=== PATIENT | female | born 1950 | race Caucasian/White ===

== ENCOUNTER 2017-05-23 18:27 | Inpatient (IN) ==
[2017-05-23] MEDS ORDERED: SODIUM CHLORIDE 0.9% 1,000 ML IV STA (18:58)
--- NOTE | 2017-05-23 19:10 | XRay Report ---
Exam: XR chest 1V portable Indication: Shortness of breath Comparison study: None Findings: The heart, mediastinum, and bony structures are within normal limits. There is no focal consolidation, pneumothorax or pleural effusion identified. Impression: No acute cardiopulmonary process. PROCEDURE INTERPRETED AT [facility] DEPARTMENT OF RADIOLOGY Final Report Signed by: Neri Trujillo
[2017-05-23 20:24] LABS: Basophils # 0.1 10*3/uL (0.0-0.2); Basophils % 0.2 % (0.0-0.8); Hematocrit 40.1 VOL% (35.7-47.0); Hemoglobin 14.2 GM/DL (12.0-16.0); Immature Granulocytes % 0.7 %; Immature Granulocytes Absolute 0.16 #; Lymphocytes # 0.8 10*3/uL (1.4-4.0); Lymphocytes % 3.4 % (21.3-54.2); Mean Corpuscular HGB Conc 35.4 GM/DL (32-36); Mean Corpuscular Hemoglobin 32 PG (27-34); Mean Corpuscular Volume 89.9 FL (87-102); Mean Platelet Volume 10.4 FL (9.6-12.0); Monocytes # 1.6 10*3/uL (0.11-0.8); Monocytes % 7.3 % (1.7-12.7); Neutrophils # 19.7 10*3/uL (1.4-7.4); Neutrophils % 88.4 % (38.7-73.9); Platelet Count 164 T/CUMM (130-400); Red Blood Count 4.46 MC/CUMM (3.8-5.5); Red Cell Distribution Width 13.1 % (9.3-17.3); White Blood Count 22.3 T/CUMM (4-12)
[2017-05-23 20:42] LABS: Albumin 3.3 G/DL (3.4-5.0); Bilirubin,Total 1.2 MG/DL (0.2-1.0); Calcium 9.3 MG/DL (8.5-10.1); Magnesium 2.3 MG/DL (1.8-2.4); Osmolality,Calculated 281.8 MOS/KG (273-304); Total Protein 7.5 G/DL (6.4-8.3)
[2017-05-23 20:44] LABS: Troponin I Only 0.058 NG/ML (0.00-0.045)
[2017-05-23 20:49] LABS: Lymphocytes 4 % (20-55); Platelet Estimate Adequate; Segmented Neutrophils 85 % (50-85); Total Cells Counted 100
[2017-05-23 21:54] LABS: Apearance,Urine CLOUDY (Clear); Bacteria,Urine Occasional /HPF (Few); Bilirubin,Urine Negative (Negative); Blood, Urine Moderate mg/dL (Negative); Glucose,Urine (UA) Negative (Negative); Ketones,Urine Negative (Negative); Mucus,Urine Occasional /LPF (Occasional); Nitrite,Urine Negative (Negative); Protein,Urine 100 MG/DL; RBC,Urine 7 /HPF (0-4); Squamous Epithelial Cell,Urine Occasional /HPF (0-10); Urine Color Yellow (Yellow); Urine Specific Gravity 1.025 (1.001-1.035); Urine Urobilinogen < 2.0 EU/DL (0.2-1.0); WBC,Urine 602 /HPF (0-6)
[2017-05-23] MEDS ORDERED: cefTRIAXone 1,000 MG in SODIUM CHLORIDE 0.9% 100 ML IV STA (21:56)
[2017-05-23] MEDS ORDERED: cefTRIAXone 1,000 MG VIAL ONE ×2 (22:27→22:46)
--- NOTE | 2017-05-23 22:30 | Emergency Department Note ---
IHardy Brooke, am scribing for, and in the presence of, Sree Lobo MD 19:04. IYamil Kevin Lee, MD, personally performed the services described in this documentation, ascribed by Indu Dash in my presence, and it is both accurate and complete . Arrival - Arrival Chief Complaint: Non-Specific Stated Complaint: UT on sunday fever 102-103,weak ED Nursing Triage Note: pt went to her pcp mi sunday. Mode of Arrival: Wheelchair Limitations: No Limitations Source: Patient, Family, RN Notes Reviewed Time Seen by Provider: 05/23/17 18:52 - History of Present Illness HPI Narrative: Patient is a 67 year old female who presents to the ED with c/o fever and generalized weakness. On Sunday, Patient was inside at an estate sale when she became diaphoretic, cold, clammy, and nauseated. She says her hair was soaking wet and "I'm not the one to sweat." Patient says she has been extremely weak since that episode. Patient is normally very active. While in the grocery store, Sunday, she had to sit down two times to rest. Patient says she has had some left neck and shoulder pain also but her main concern is the weakness. Patient's temperature started last night around 1800 and she says it was 102.4. During triage, her temperature was 96.9. Patient says she is not eating or drinking and says she "don't feel like." She did see her Nurse Practitioner, yesterday, where they did blood/urine work. She has not received the results from the blood work but she says she was told "there was something in my urine. " She says they sent the urine to be cultured but did not prescribe her any abx. Patient has no known medical problems. Patient says she does have FHx of heart disease. Onset (ago): day(s) (5) Allergies/Adverse Reactions: Allergies Allergy/AdvReac Type Severity Reaction Status Date / Time allopurinol Allergy Unknown/Unable Verified 05/23/17 18:37 to obtain Home Medications: Home Medications Medication Instructions Recorded Confirmed Type Levothyroxine Tab [Synthroid Tab] 100 mcg PO DAILY@0700 05/23/17 05/23/17 History Multivit-Min/FA/Lycopen/Lutein 1 each PO BEDTIME 05/23/17 05/23/17 History [Centrum Silver Tablet] Potassium Chloride 20 meq PO BEDTIME 05/23/17 05/23/17 History Triamterene/Hydrochlorothiazid 1 each PO QAM 05/23/17 05/23/17 History [Triamterene-Hctz 37.5-25 mg Tb] Review of System - Review of System 12 point system: reviewed and no additional remarkable complaints except as stated - Review of System Constitutional: Present: fever Respiratory: Absent: respiratory distress Musculoskeletal: Present: neck pain (left side), other (left shoulder pain) Skin: Absent: rash Neurological: Present: weakness (generalized) Medical,Surgical,& Family Hx - Social History Smoking Status: Never smoker Frequency of Alcohol Use: None Type of Drug Use: None Exam Vital Signs: Vital Signs Temperature 96.6 F L 05/23/17 22:11 Pulse Rate 100 H 05/23/17 22:11 Respiratory Rate 18 05/23/17 22:11 Blood Pressure 123/78 05/23/17 22:11 O2 Sat by Pulse Oximetry 96 05/23/17 18:35 - General General appearance: alert, in no apparent distress - Head Head exam: Present: atraumatic, normocephalic - Eye Eye exam: Present: normal appearance, PERRL, EOMI - ENT ENT exam: Present: normal exam - Neck Neck exam: Present: normal inspection - Chest Chest inspection: Present: normal inspection, symmetric chest wall rise - Respiratory Respiratory exam: Present: normal lung sounds bilaterally - Cardiovascular Cardiovascular exam: Present: regular rate, normal rhythm, normal heart sounds - Abdominal Exam Abdominal exam: Present: soft, normal bowel sounds. Absent: distention, tenderness - Extremities Exam Extremities exam: Present: normal inspection - Back Exam Back exam: Present: normal inspection - Neurological Exam Neurological exam: Present: alert, oriented X3 - Psychiatric Psychiatric exam: Present: normal affect, normal mood - Skin Skin exam: Present: warm, dry, intact, normal color Course Course Narrative: will admit for IV abx and fluids and further eval and treatment of elevated enzyes Results - Labs CBC & BMP: 05/23/17 20:02 05/23/17 20:02 Lab Results: I have reviewed the patients labs - Diagnostic Findings Procedure: Chest x-ray: report reviewed by me (No acute cardiopulmonary process. ), CT Abdomen and Pelvis: report reviewed by me (no acute findings) Disposition Clinical Impression: UTI (urinary tract infection), Sepsis, Generalized weakness, Cardiac enzymes elevated Case discussed with: patient, patient's family Disposition: Still a Patient Condition: Guarded
[2017-05-23] MEDS ORDERED: ONDANSETRON 4 MG/2 ML VIAL IV PRN (23:38)
[2017-05-24] MEDS ORDERED: POTASSIUM CHLORIDE 20 MEQ PACK PO ONE (01:00)
[2017-05-24] MEDS: SODIUM CHLORIDE 0.9% 1,000 ML IV SCH ×3 (01:28→20:33)
[2017-05-24] MEDS: ACETAMINOPHEN 325 MG TABLET PO PRN ×4 (02:04→20:28)
--- NOTE | 2017-05-24 03:01 | EKG Report ---
Stationary ECG Study [facility] ER Test Date: 05/23/2017 6:46:05 PM Pat Name: DALY ZAMORA Department: Room: 528 Gender: F Die Finisher: : 1950 Requested by: Sree Nichole Order Number: [id number] Reading MD: REGINO OWENS Intervals [place] Rate: 99 P: 22 AL: 124 QRS: 21 QRSD: 83 T: 4 QT: 330 QTc: 386 Interpretive Statements SINUS RHYTHM LOW QRS VOLTAGE IN PRECORDIAL LEADS Electronically Signed On 05-24-17 18:49:29 CDT by REGINO OWENS [email or web address]
--- NOTE | 2017-05-24 05:51 | Hospitalist History & Physical ---
<Keri Santana - Last Filed: 05/24/17 05:35> Assessment and Plan - Time spent with patient Time spent with patient: Greater than 30 minutes (1) Pyelonephritis Status: Acute Assessment and plan: Admit to hospitalist services. Right-sided abdominal pain with elevated WBCs at 22.3 and fever at home. NS 100 ml/hr IV x 24 hours. Rocephin 1 gm given in ED. Continue Q24 hours. Blood cultures drawn in ED; follow. Recheck CBC in am. Current Visit: Yes (2) Sepsis Status: Acute Assessment and plan: As above for pyelonephritis. Current Visit: Yes (3) Acute renal failure Status: Acute Assessment and plan: NS at 100 ml/hr IV x 24 hours. Recheck BMP in am. Current Visit: Yes (4) Generalized weakness Status: Acute Assessment and plan: As above for pyelonephritis. Current Visit: Yes (5) Cardiac enzymes elevated Status: Acute Assessment and plan: Initial troponin in ED was 0.058. Possibly a cardiac event occurred on Sunday05/19/17. Consult cardiology. Obtain serial troponins; follow. Repeat BNP in am. Magnesium, Lipid panel and TSH/Free T4 in am. Current Visit: Yes (6) Hypokalemia Status: Acute Assessment and plan: Potassium chloride 40 meq packet PO x 1 dose. Continue home dose of potassium 20 meq PO daily. Recheck BMP in am. Current Visit: Yes (7) Blood glucose elevated Status: Acute Assessment and plan: Patient denies history of diabetes. Check HA1C with am labs. Current Visit: Yes (8) Hypertension Status: Chronic Assessment and plan: Holding home BP meds for now due to ARF. Hydralazine 10 mg IV Q6 hours PRN for BP >150/90. Current Visit: Yes (9) Hypothyroidism Status: Chronic Assessment and plan: Continue home dose of levothyroxine. Current Visit: Yes (10) DVT prophylaxis Status: Acute Assessment and plan: Lovenox 40 mg SQ daily. Current Visit: Yes History of Present Illness Chief complaint: Weakness, fever, generalized malaise History of present illness: Ms. Simon is a 67 year old female with a past medical history of HTN, hypothyroidism, and gout who presented to the ED tonight with complaints of generalized weakness and malaise, fever of 102, and nausea. Ms. Page reports that on 05/19/17, she was at an estate sale when she had sudden onset of diaphoresis, clamminess, weakness, bilateral shoulder pain, left-sided neck pain and nausea. She had family take her home where she waited through the holiday with continuing symptoms. She presented to her PCP on Sunday and was told she probably had a mild heart attack. A cardiology appointment was established at that time. However, her symptoms have persisted and she has developed a fever of 102. Additionally, she reports right-sided abdominal pain and new onset of urinary urgency with incontinence since the Sunday event. In the ED, she was found to have elevated WBCs at 22.3, creatinine of 1.5, a large number of leukocytes in her urine, and an elevated troponin of 0.058. CXR was negative for any acute cardiopulmonary process. Currently, she is lying in bed, still with complaints of general weakness and malaise. Hospitalist services were consulted, and the patient will be admitted for further evaluation and treatment. Home Medications Medication Instructions Recorded Confirmed Type Levothyroxine Tab [Synthroid Tab] 100 mcg PO DAILY@0700 05/23/17 05/24/17 History Multivit-Min/FA/Lycopen/Lutein 1 each PO BEDTIME 05/23/17 05/24/17 History [Centrum Silver Tablet] Potassium Chloride 20 meq PO BEDTIME 05/23/17 05/24/17 History Triamterene/Hydrochlorothiazid 1 each PO QAM 05/23/17 05/24/17 History [Triamterene-Hctz 37.5-25 mg Tb] Allergies Allergy/AdvReac Type Severity Reaction Status Date / Time allopurinol Allergy Unknown/Unable Verified 05/23/17 18:37 to obtain Medical,Surgical,& Family Hx - Medical History Cardio: History of: Hypertension Endocrine: History of: Thyroid Disorder (Hypothyroidism) Rheumatology: History of;: Gout - Surgical History HEENT Surgeries: Surgical HX of: Eye Surgery (cataract surgery) Abdominal Surgeries: Surgical HX of: Cholecystectomy - Family History Family History: Reports;: Family Cancer (father), Family Heart Disease (mother, heart failure) - Social History Smoking Status: Never smoker Have you smoked in the last 12 months: No Frequency of Alcohol Use: None Type of Drug Use: None Marital Status: Lives With:: Spouse Functional capacity: independent ambulation - Constitutional Constitutional: Present: anorexia, fatigue, fever(s), lethargy, malaise, weakness - EENT Eyes: Absent: blurry vision, diplopia, loss of vision Ears: Absent: decreased hearing, ear discharge, ear pain Nose, mouth and throat: Absent: headache(s), nasal congestion, sore throat - Cardiovascular Cardiovascular: Absent: chest pain at rest, chest pain with activity, dyspnea, edema, orthopnea, palpitations - Respiratory Respiratory: Absent: cough, dyspnea, wheezing - Gastrointestinal Gastrointestinal: Present: abdominal pain (right-sided), nausea. Absent: constipation, diarrhea, vomiting - Genitourinary Genitourinary: Present: urinary incontinence, other (urinary urgency). Absent: dysuria - Musculoskeletal Musculoskeletal: Present: arthralgias (bilateral shoulder pain), muscle weakness. Absent: joint swelling, myalgias - Neurological Neurological: Present: paresthesias (bilateral feet). Absent: confusion, dizziness, numbness, syncope - Psychiatric Psychiatric: Absent: anxiety, depression - Endocrine Endocrine: Absent: cold intolerance, polydipsia, polyphagia, polyuria - Hematologic/Lymphatic Hematologic/Lymphatic: Absent: easy bleeding, easy bruising Exam - Constitutional Vitals: Period Temp Pulse Resp BP Sys/Flores Pulse Ox Last 24 Hr 96.6 F-99.6 F 74-100 18-20 123-176/59-78 96-100 Exam: Constitutional System: Afebrile, low temp of 96.6. Diaphoretic. Mild distress. No tremulousness. Head: Normocephalic, atraumatic. Ears, Nose and Throat System: No pain or tenderness. No epistaxis or discharge Eyes System: Pupils equal, round, and reactive. Extraocular muscles intact. Neck: Supple, without adenopathy, No jugular venous distention. No thyromegaly, neck mass, or prior surgery apparent. Respiratory System: Chest clear to auscultation. Cardiovascular System: Heart with regular rate and rhythm. No murmur. GI System: Abdomen soft, nontender. Normo active bowel sounds present. Musculoskeletal System: limbs with no pedal edema. Full distal pulses. Normal capillary refill. Neurological System: No discernable sensory deficit. No aphasia Psychiatric System: Conversation is rational Results - Labs CBC & BMP: 05/23/17 20:02 05/23/17 20:02 Lab Results: I have reviewed the past 24 hour labs - Diagnostic Findings Procedure: Chest x-ray: report reviewed by me (Reviewed by me. No acute cardiopulmonary process. ), CT Abdomen and Pelvis: pending <BlueAta - Last Filed: 05/24/17 21:50> Assessment and Plan (1) Pyelonephritis Status: Acute Assessment and plan: I saw and examined the patient in conjunction with nurse practitioner Keri Okeefe. I agree with the above. The patient presented with fever, abdominal pain, pyuria, leukocytosis consistent with acute pyelonephritis. She did describe an episode of chest and arm pain occurring 3 days prior in weakness and malaise since then associated with mildly elevated troponin which does raise the possibility that she may have had a cardiac event at that time. I agree with current antibiotics, completing serial troponins and consulting cardiology. Exam is unremarkable. She does have some right abdominal tenderness consistent with pyelonephritis. Current Visit: Yes History of Present Illness History of present illness: Ms. Simon is a 67 year old female Exam - Constitutional Vitals: Period Temp Pulse Resp BP Sys/Flores Pulse Ox Last 24 Hr 96.6 F-99.7 F 72-100 18-20 123-176/47-78 93-100 Results - Labs CBC & BMP: 05/24/17 06:47 05/24/17 06:47
[2017-05-24] MEDS: LEVOTHYROXINE 100 MCG TABLET PO SCH (06:12)
[2017-05-24] MEDS ORDERED: hydrALAZINE 20 MG/1 ML VIAL IV PRN (06:23)
--- NOTE | 2017-05-24 06:51 | CT Report ---
Exam: CT abdomen pelvis w con Date: 05/23/2017 8:38 PM Comparison: None Indication: Abdominal pain fever Total DLP: 2048.8 mGy*cm Technical: This study was initially reviewed by [facility]. No oral contrast was administered. Images were obtained from the lung bases to the iliac crest continuation through the pelvis with 100 cc of Omnipaque 350 with axial sagittal coronal imaging available for review. Dose reduction was performed with decreasing kv and mA and automated exposure Findings: Lung bases: No obvious infiltrates or effusions present. Liver and Spleen: Unremarkable Gallbladder and Pancreas: Previous cholecystectomy. Adrenals: Unremarkable Kidneys: Both kidneys are equally perfused and demonstrate no evidence for obstructive uropathy. Stomach: Incomplete distended with air-fluid and debris Retroperitoneum: No enlarged lymph nodes. Aorta and IVC: Aorta iliac vessels and IVC are unremarkable Bowel and Mesentery: There is no evidence for bowel obstruction. No evidence of appendicitis diverticulosis or diverticulitis present. Pelvis: Bladder: Incompletely distended with fluid Fluid: No free fluid identified. Lymph nodes: No enlarged lymph nodes. Pelvic organs: Uterus is midline. No adnexal masses. Osseous structures: Degenerative changes present thoracolumbar spine. Facet arthropathy is present. Impression: 1. No acute intra-abdominal or pelvic pathology present. 2. Previous cholecystectomy 3. 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 PROCEDURE INTERPRETED AT [facility] DEPARTMENT OF RADIOLOGY Final Report Signed by: Dr. Kobe Friedman
[2017-05-24 08:08] LABS: Basophils % 0.2 % (0.0-0.8); Hematocrit 35.6 VOL% (35.7-47.0); Hemoglobin 12.4 GM/DL (12.0-16.0); Immature Granulocytes % 0.6 %; Immature Granulocytes Absolute 0.13 #; Lymphocytes # 0.7 10*3/uL (1.4-4.0); Lymphocytes % 3.5 % (21.3-54.2); Mean Corpuscular HGB Conc 34.8 GM/DL (32-36); Mean Corpuscular Hemoglobin 32 PG (27-34); Mean Corpuscular Volume 91.3 FL (87-102); Mean Platelet Volume 10.9 FL (9.6-12.0); Monocytes # 1.1 10*3/uL (0.11-0.8); Monocytes % 5.3 % (1.7-12.7); Neutrophils # 18.2 10*3/uL (1.4-7.4); Neutrophils % 90.4 % (38.7-73.9); Platelet Count 153 T/CUMM (130-400); Red Cell Distribution Width 13.4 % (9.3-17.3); White Blood Count 20.1 T/CUMM (4-12)
[2017-05-24 08:35] LABS: Band Neutrophils 12 % (0-10); Lymphocytes 1 % (20-55); Segmented Neutrophils 82 % (50-85); Total Cells Counted 100
[2017-05-24 08:36] LABS: Hypochromasia Slight; Microcytosis 1+; Platelet Estimate Adequate
[2017-05-24 08:44] LABS: Magnesium 2.2 MG/DL (1.8-2.4); Osmolality,Calculated 280.7 MOS/KG (273-304); Potassium 3.3 MMOL/L (3.5-5.1); Risk Ratio 2.7; VLDL CHOLESTEROL 13.8 MG/DL
--- NOTE | 2017-05-24 13:28 | EKG Report ---
Stationary ECG Study [facility] Test Date: 05/24/2017 1:28:44 PM Pat Name: DALY ZAMORA Department: Room: 528 Gender: F Audit Intern: : 1950 Requested by: Cristobal Keith Order Number: [id number] Reading MD: REGINO OWENS Intervals [place] Rate: 73 P: 61 [place]: 146 QRS: 44 QRSD: 81 T: 59 QT: 367 QTc: 393 Interpretive Statements SINUS RHYTHM LOW QRS VOLTAGE IN PRECORDIAL LEADS Electronically Signed On 05-24-17 18:55:55 CDT by REGINO OWENS [id number]
--- NOTE | 2017-05-24 13:48 | Cardiology Consult Note ---
Assessment and Plan - Time spent with patient Time spent with patient: Greater than 30 minutes (due to assessment, plan, and documentation) (1) Cardiac enzymes elevated Status: Acute Assessment and plan: See plan of care listed below. Current Visit: Yes (2) Pyelonephritis Status: Acute Assessment and plan: See plan of care listed below. Current Visit: Yes (3) Acute renal failure Status: Acute Assessment and plan: See plan of care listed below. Current Visit: Yes (4) Sepsis Status: Acute Assessment and plan: See plan of care listed below. Current Visit: Yes (5) Generalized weakness Status: Acute Assessment and plan: See plan of care listed below. Current Visit: Yes (6) Hypokalemia Status: Acute Assessment and plan: See plan of care listed below. Current Visit: Yes (7) Hypertension Status: Chronic Assessment and plan: See plan of care listed below. Current Visit: Yes (8) Hypothyroidism Status: Chronic Assessment and plan: See plan of care listed below. Current Visit: Yes (9) Blood glucose elevated Status: Acute Assessment and plan: See plan of care listed below. Current Visit: Yes History of Present Illness - Data of Consult Patient: new to practice Consult date: 05/24/17 Requesting Physician: Keri Santana - Consult Narrative Reason for consult: elevated troponin History of present illness: Crts: new to [facility] (would prefer to see Dr. Carrasco as he has seen her other family members) Ms. Simon is a 67 y/o WF with a history of hypertension, hypothyroidism (with goiter), and gout. She has risk factors significant for: age, obesity, sedentary lifestyle, hypertension, family history of coronary disease. Her grandmother in her sleep at age 36 from an assumed MS. She is a lifetime nonsmoker. Her daughter, Sheridan, has been a nurse at [employer] who I worked with for many years. She did have rheumatic fever as a child. Ms. Simon presented to the emergency room on 05/23/17 with complaints of generalized weakness and malaise, fever, and nausea. She reports that she had been in her usual state of health until Sunday05/19/17 when she was at an estate sale and became suddenly diaphoretic. She felt cool and clammy and became nauseated. She also had pain in her left neck and across her shoulders. She felt very weak and could hardly make it to her vehicle. Since that time, she has not been feeling well. She is normally fairly active but her daughter tells me that they went grocery shopping this week and she had to stop and rest twice. She has been very easily fatigued and began running a fever and having chills on Sunday. Her temperature got up to 103 degrees. She went to a PCP in [place] because she felt like she had a kidney infection and was told that her urinalysis was not bad enough to warrant an antibiotic but was sent off for culture. She has been progressively worsening and her daughter insisted she come to the emergency room. En route, she reports she felt so weak she thought she was going to pass out. She denies any recent exertional angina or dyspnea. She was noted to have SpO2 of 90-91% in the ER. Creatinine was 1.5, WBC 22.3 with left shift. Troponin was trivially elevated at 0.058 in the setting of acute renal failure. Her potassium was 3.0, up to 3.3 today. Magnesium is 2.2. ASSESSMENT/PLAN: 1. ELEVATED TROPONIN: Trivially elevated in the setting of acute renal failure. It's possible she could have had a cardiac event Sunday, but at this time, we would postpone further cardiac evaluation until she has recovered from her acute illness. I have ordered an echocardiogram which we will review. We'll go ahead and start her on a baby aspirin daily as well as a low-dose beta morgan. 2. PYELONEPHRITIS: She has been started on IV antibiotics. Will defer further management to hospital medicine. 3. SEPSIS: Urine culture and blood culture preliminary report shows gram negative rods. She has been started on antibiotics. 4. ACUTE RENAL FAILURE: She has been started on IVF and antibiotics. We are avoiding nephrotoxic agents and following BMP. 5. GENERALIZED WEAKNESS: Likely due to sepsis and phyelonephritis. 6. HYPOKALEMIA: This is being replaced as needed. 7. HYPERTENSION: Has been fairly well controlled. Will continue to monitor and adjust accordingly. Her home blood pressure medications are on hold due to ARF. She has hydralazine PRN. We will also start her on low-dose beta morgan and aspirin. 8. HYPOTHYROID: FT4 normal. 9. ELEVATED BLOOD GLUCOSE: Hemoglobin A1C 5.7. CC: Susy Narvaez MD - Home Medications and Allergies Home Medications: Home Medications Medication Instructions Recorded Confirmed Type Levothyroxine Tab [Synthroid Tab] 100 mcg PO DAILY@0700 05/23/17 05/24/17 History Multivit-Min/FA/Lycopen/Lutein 1 each PO BEDTIME 05/23/17 05/24/17 History [Centrum Silver Tablet] Potassium Chloride 20 meq PO BEDTIME 05/23/17 05/24/17 History Triamterene/Hydrochlorothiazid 1 each PO QAM 05/23/17 05/24/17 History [Triamterene-Hctz 37.5-25 mg Tb] Allergies/Adverse Reactions: Allergies Allergy/AdvReac Type Severity Reaction Status Date / Time allopurinol Allergy Unknown/Unable Verified 05/23/17 18:37 to obtain Review of systems: - Constitutional: Present: fatigue, weakness, chills, fever(s), malaise, As per HPI. Absent: anorexia, daytime sleepiness, excessive sweating, frequent falls, headache(s), increased appetite, lethargy, night sweats, stops breathing during sleep, weight gain, weight loss. - EENT Eyes: Present: As per HPI. Absent: blurry vision, diplopia, loss of vision Ears: Present: As per HPI. Absent: decreased hearing, ear discharge, ear pain Nose, mouth and throat: Present: As per HPI. Absent: dysphagia, epistaxis, headache(s), hoarseness, lip swelling, nasal congestion, neck mass, neck pain, sinus pressure, sore throat, throat swelling, tongue swelling, vertigo - Cardiovascular: Present: radiating jaw, neck or arm pain, diaphoresis, , as per HPI. Absent: chest pain at rest, chest pain with activity, dyspnea, dyspnea on exertion, edema, claudication, lightheadedness, orthopnea, palpitations, PND - Respiratory: Present: as per HPI. Absent: dyspnea, dyspnea on exertion, cough , hemoptysis, wheezing, snoring, pain on inspiration - Gastrointestinal: Present: nausea, As per HPI. Absent: abdominal pain, bloating, change in bowel habits, constipation, diarrhea, heartburn, hematemesis , hematochezia, loose stools, melena, vomiting - Genitourinary: Present: dysuria, urinary frequency, As per HPI. Absent: difficulty urinating, flank pain, hematuria, nocturia, urinary incontinence - Musculoskeletal: Present: back pain, As per HPI. Absent: arthralgias, joint swelling, limited range of motion, muscle cramps, muscle weakness, myalgias - Neurological: Present: weakness, As per HPI. Absent: abnormal gait, abnormal speech, behavioral changes, confusion, convulsions, disequilibrium, dizziness, focal frequent falls, headache(s), memory loss, numbness, paresthesias, radicular pain, syncope, tremor(s) - Psychiatric: Present: As per HPI. Absent: anxiety, confusion, depression, panic attacks - Endocrine: Present: fatigue, As per HPI. Absent: cold intolerance, heat intolerance, polydipsia, polyphagia - Hematologic/Lymphatic: Present: As per HPI. Absent: easy bleeding, easy bruising, lymphadenopathy Medical,Surgical,& Family Hx - Medical History Cardio: History of: Hypertension Endocrine: History of: Thyroid Disorder (Hypothyroidism) Rheumatology: History of;: Gout - Surgical History HEENT Surgeries: Surgical HX of: Eye Surgery (cataract surgery) Abdominal Surgeries: Surgical HX of: Cholecystectomy - Family History Family History: Reports;: Family Cancer (father), Family Heart Disease (mother, heart failure) - Social History Smoking Status: Never smoker Frequency of Alcohol Use: None Type of Drug Use: None Marital Status: Lives With:: Spouse Functional capacity: independent ambulation Physical Examination Vital Signs Temp Pulse Resp BP Pulse Ox 96.6 F L 100 H 18 123/78 96 05/23/17 18:35 05/23/17 18:35 05/23/17 18:35 05/23/17 18:35 05/23/17 18:35 Exam: General appearance: Appears well. Pleasant and cooperative. Overweight, no acute distress. Head exam: Present: normal inspection, normocephalic, atraumatic. Absent: hematoma, laceration Eye exam: Present: EOMI. Absent: conjunctival injection, nystagmus, periorbital swelling, scleral icterus, laceration to eyelids, jaundice Pupils: Present: PERRL. Absent: constricted, dilated, fixed, irregular, unequal ENT exam: Present: normal exam, normal external ear exam, mucous membranes moist. Neck exam: Present: normal inspection, midline trachea. Absent: masses, lymphadenopathy, tenderness, thyromegaly, carotid bruit Respiratory exam: Present: clear to auscultation bilaterally. Absent: accessory muscle use, chest wall tenderness, rales, rhonchi, wheezing. Cardiovascular exam: Present: regular rate and rhythm. Systolic ejection murmur. Absent: gallop, JVD, rubs GI/Abdominal exam: Present: normal bowel sounds, soft. Absent: distended, firm , hernia, mass, tenderness. Extremities exam: Present: Normal Gait, No Clubbing, No Cyanosis, Upper Extr. Pulses 2+, Lower Extr. Pulses 2+, No edema. Capillary refill less than 3 seconds. Musculoskeletal: Present: No Fluid Collection, No Pain, Normal Range of Motion Back exam: Present: normal inspection. Absent: muscle spasm, vertebral tenderness Neurological exam: Present: awake, alert, oriented X3, Moves all extremities well without hemiparesis or paralysis. Grossly intact without resting or essential tremor Psychiatric exam: Present: normal affect, normal mood Skin exam: Present: normal color, warm, dry, intact. Absent: cyanosis, diaphoretic, rash, urticaria Result/EKG - Labs CBC & BMP: 05/24/17 06:47 05/24/17 06:47 Lab Results: I have reviewed the past 24 hour labs Labs: Laboratory Results - last 24 hr 05/23/17 05/23/17 05/23/17 20:02 20:02 20:02 WBC 22.3 H RBC 4.46 Hgb 14.2 Hct 40.1 MCV 89.9 MCH 32 MCHC 35.4 RDW 13.1 Plt Count 164 MPV 10.4 Neut % (Auto) 88.4 H Lymph % (Auto) 3.4 L Hubbard % (Auto) 7.3 Eos % (Auto) 0.0 Baso % (Auto) 0.2 Neut # (Auto) 19.7 H Lymph # (Auto) 0.8 L Hubbard # (Auto) 1.6 H Eos # (Auto) 0.0 Baso # (Auto) 0.1 Total Counted 100 Immature Gran % 0.7 Nucleated RBC % 0.0 Immature Gran # 0.16 Segmented Neutrophils 85 Band Neutrophils Lymphocytes 4 L Monocytes 11 Nucleated RBCs # 0.00 Platelet Estimate Adequate Immature Plt Fraction 0.0 Hypochromasia Microcytosis Sodium 137 Potassium 3.0 L Chloride 101 Carbon Dioxide 28 Anion Gap 11.0 BUN 23 H Creatinine 1.50 H GFR Calculation 48 BUN/Creatinine Ratio 15.00 Glucose 187 H POC Glucose Hemoglobin A1c Calculated Osmolality 281.8 Lactic Acid Calcium 9.3 Magnesium 2.3 Total Bilirubin 1.20 H AST 20 ALT 21 Alkaline Phosphatase 79 Troponin I 0.058 H B-Natriuretic Peptide 25 Total Protein 7.5 Albumin 3.3 L Globulin 4.2 H Albumin/Globulin Ratio 0.7 L Triglycerides Cholesterol LDL Cholesterol VLDL Cholesterol HDL Cholesterol Heart Disease Risk Ratio Free T4 Urine Color Urine Appearance Urine pH Ur Specific Sligo Urine Protein Urine Glucose (UA) Urine Ketones Urine Blood Urine Nitrate Urine Bilirubin Urine Urobilinogen Urine Leukocytes Urine RBC Urine WBC Urine WBC Clumps Ur Squamous Epith Cells Urine Bacteria Urine Mucus Ur Culture Indicated? 05/23/17 05/23/17 05/24/17 20:02 21:41 06:47 WBC 20.1 H RBC 3.90 Hgb 12.4 Hct 35.6 L MCV 91.3 MCH 32 MCHC 34.8 RDW 13.4 Plt Count 153 MPV 10.9 Neut % (Auto) 90.4 H Lymph % (Auto) 3.5 L Hubbard % (Auto) 5.3 Eos % (Auto) 0.0 Baso % (Auto) 0.2 Neut # (Auto) 18.2 H Lymph # (Auto) 0.7 L Hubbard # (Auto) 1.1 H Eos # (Auto) 0.0 Baso # (Auto) 0.0 Total Counted 100 Immature Gran % 0.6 Nucleated RBC % 0.0 Immature Gran # 0.13 Segmented Neutrophils 82 Band Neutrophils 12 H Lymphocytes 1 L Monocytes 5 Nucleated RBCs # 0.00 Platelet Estimate Adequate Immature Plt Fraction 0.0 Hypochromasia Slight Microcytosis 1+ Sodium Potassium Chloride Carbon Dioxide Anion Gap BUN Creatinine GFR Calculation BUN/Creatinine Ratio Glucose POC Glucose Hemoglobin A1c Calculated Osmolality Lactic Acid 1.1 Calcium Magnesium Total Bilirubin AST ALT Alkaline Phosphatase Troponin I B-Natriuretic Peptide Total Protein Albumin Globulin Albumin/Globulin Ratio Triglycerides Cholesterol LDL Cholesterol VLDL Cholesterol HDL Cholesterol Heart Disease Risk Ratio Free T4 Urine Color Yellow Urine Appearance Cloudy Urine pH 5.0 Ur Specific Sligo 1.025 Urine Protein 100 Urine Glucose (UA) Negative Urine Ketones Negative Urine Blood Moderate Urine Nitrate Negative Urine Bilirubin Negative Urine Urobilinogen < 2.0 H Urine Leukocytes Large H Urine RBC 7 Urine WBC 602 Urine WBC Clumps Many Ur Squamous Epith Cells Occasional Urine Bacteria Occasional Urine Mucus Occasional Ur Culture Indicated? Results to follow 05/24/17 05/24/17 05/24/17 06:47 06:47 06:47 WBC RBC Hgb Hct MCV MCH MCHC RDW Plt Count MPV Neut % (Auto) Lymph % (Auto) Hubbard % (Auto) Eos % (Auto) Baso % (Auto) Neut # (Auto) Lymph # (Auto) Hubbard # (Auto) Eos # (Auto) Baso # (Auto) Total Counted Immature Gran % Nucleated RBC % Immature Gran # Segmented Neutrophils Band Neutrophils Lymphocytes Monocytes Nucleated RBCs # Platelet Estimate Immature Plt Fraction Hypochromasia Microcytosis Sodium 138 Potassium 3.3 L Chloride 104 Carbon Dioxide 28 Anion Gap 9.3 BUN 22 H Creatinine 1.40 H GFR Calculation 53 BUN/Creatinine Ratio 15.00 Glucose 153 H POC Glucose Hemoglobin A1c 5.7 Calculated Osmolality 280.7 Lactic Acid Calcium 8.0 L Magnesium 2.2 Total Bilirubin AST ALT Alkaline Phosphatase Troponin I B-Natriuretic Peptide Total Protein Albumin Globulin Albumin/Globulin Ratio Triglycerides 69 Cholesterol 124 LDL Cholesterol 65.0 VLDL Cholesterol 13.8 HDL Cholesterol 46 Heart Disease Risk Ratio 2.70 Free T4 1.42 Urine Color Urine Appearance Urine pH Ur Specific Sligo Urine Protein Urine Glucose (UA) Urine Ketones Urine Blood Urine Nitrate Urine Bilirubin Urine Urobilinogen Urine Leukocytes Urine RBC Urine WBC Urine WBC Clumps Ur Squamous Epith Cells Urine Bacteria Urine Mucus Ur Culture Indicated? 05/24/17 05/24/17 05/24/17 06:47 06:47 07:09 WBC RBC Hgb Hct MCV MCH MCHC RDW Plt Count MPV Neut % (Auto) Lymph % (Auto) Hubbard % (Auto) Eos % (Auto) Baso % (Auto) Neut # (Auto) Lymph # (Auto) Hubbard # (Auto) Eos # (Auto) Baso # (Auto) Total Counted Immature Gran % Nucleated RBC % Immature Gran # Segmented Neutrophils Band Neutrophils Lymphocytes Monocytes Nucleated RBCs # Platelet Estimate Immature Plt Fraction Hypochromasia Microcytosis Sodium Potassium Chloride Carbon Dioxide Anion Gap BUN Creatinine GFR Calculation BUN/Creatinine Ratio Glucose POC Glucose 149 H Hemoglobin A1c Calculated Osmolality Lactic Acid Calcium Magnesium Total Bilirubin AST ALT Alkaline Phosphatase Troponin I 0.042 B-Natriuretic Peptide 64 Total Protein Albumin Globulin Albumin/Globulin Ratio Triglycerides Cholesterol LDL Cholesterol VLDL Cholesterol HDL Cholesterol Heart Disease Risk Ratio Free T4 Urine Color Urine Appearance Urine pH Ur Specific Sligo Urine Protein Urine Glucose (UA) Urine Ketones Urine Blood Urine Nitrate Urine Bilirubin Urine Urobilinogen Urine Leukocytes Urine RBC Urine WBC Urine WBC Clumps Ur Squamous Epith Cells Urine Bacteria Urine Mucus Ur Culture Indicated? 05/24/17 09:26 WBC RBC Hgb Hct MCV MCH MCHC RDW Plt Count MPV Neut % (Auto) Lymph % (Auto) Hubbard % (Auto) Eos % (Auto) Baso % (Auto) Neut # (Auto) Lymph # (Auto) Hubbard # (Auto) Eos # (Auto) Baso # (Auto) Total Counted Immature Gran % Nucleated RBC % Immature Gran # Segmented Neutrophils Band Neutrophils Lymphocytes Monocytes Nucleated RBCs # Platelet Estimate Immature Plt Fraction Hypochromasia Microcytosis Sodium Potassium Chloride Carbon Dioxide Anion Gap BUN Creatinine GFR Calculation BUN/Creatinine Ratio Glucose POC Glucose Hemoglobin A1c Calculated Osmolality Lactic Acid Calcium Magnesium Total Bilirubin AST ALT Alkaline Phosphatase Troponin I 0.038 B-Natriuretic Peptide Total Protein Albumin Globulin Albumin/Globulin Ratio Triglycerides Cholesterol LDL Cholesterol VLDL Cholesterol HDL Cholesterol Heart Disease Risk Ratio Free T4 Urine Color Urine Appearance Urine pH Ur Specific Sligo Urine Protein Urine Glucose (UA) Urine Ketones Urine Blood Urine Nitrate Urine Bilirubin Urine Urobilinogen Urine Leukocytes Urine RBC Urine WBC Urine WBC Clumps Ur Squamous Epith Cells Urine Bacteria Urine Mucus Ur Culture Indicated? - EKG EKG results: interpreted by me, sinus rhythm
[2017-05-24] MEDS: ASPIRIN EC 81 MG TABLET PO SCH (16:10)
--- NOTE | 2017-05-24 16:42 | Hospitalist Progress Note ---
Hospitalist: Subjective Interval history: 67-year-old female who was admitted with acute pyelonephritis and sepsis. Blood cultures are growing gram-negative rods. She is on IV Rocephin. She had mildly elevated troponins for which cardiology is evaluating. Exam - Constitutional Vitals: Period Temp Pulse Resp BP Sys/Flores Pulse Ox Last 24 Hr 96.6 F-99.7 F 74-100 18-20 123-176/59-78 96-100 Results - Labs CBC & BMP: 05/24/17 06:47 05/24/17 06:47
[2017-05-24] MEDS: cefTRIAXone 2,000 MG in SODIUM CHLORIDE 0.9% 100 ML IV SCH (17:55)
--- NOTE | 2017-05-24 18:36 | ECHO Report ---
Jabari Simon 05/24/2017 Exam Date: 15:53 Referring Physician: Asuncion Govea Technologist: DEIDRE Age: 67 Ht (in): 70 Wt (lb): 256 FExam [facility] Gender: Echo [id number]: Elevated cardiac enzymes, PyelonephrIndications:itis, Acute kidney failure, unspecified, Essential (primary) hypertension, Weakness, Sepsis, Elevated blood glucose, Hypokalemia, Hypothyroidism, Fever, hx rheumatic fever as child BP: 123 / 60 HR: 84 SinusRhythm: Technically difficult studyTechnical Quality: IMPRESSIONS Moderate left ventricular hypertrophy. Left ventricular ejection fraction is estimated at 60 %. No wall motion abnormality Mildly increased right ventricular size. The right atrium is mildly enlarged. The left atrium is mildly enlarged. Trace mitral valve regurgitation. There is no aortic regurgitation. Trace to mild tricuspid valve regurgitation. Tricuspid regurgitation velocities suggest a PAP of 52 mmHg. MEASUREMENTS (Male / Female) Normal Values 2D ECHO LV Diastolic Diameter PLAX 4.0 cm 4.2 - 5.9 / 3.9 - 5.3 cm LV Systolic Diameter PLAX 2.4 cm LV Fractional Shortening PLAX 40.7 % IVS Diastolic Thickness 1.5 cm 0.6 - 1.0 / 0.6 - 0.9 cm LVPW Diastolic Thickness 1.5 cm 0.6 - 1.0 / 0.6 - 0.9 cm RV Internal Dim ED PLAX 3.1 cm Aortic Root Diameter 3.3 cm LA Systolic Diameter LX 4.0 cm 3.0 - 4.0 / 2.7 - 3.8 cm DOPPLER TR Peak Velocity 323.0 cm/s TR Peak Gradient 41.7 mmHg FINDINGS Left Ventricle Normal left ventricular cavity size. Moderate left ventricular hypertrophy. Left ventricular ejection fraction is estimated at 60 %. Right Ventricle Mildly increased right ventricular size. Right Atrium The right atrium is mildly enlarged. Left Atrium The left atrium is mildly enlarged. Mitral Valve Morphologically normal mitral valve. Trace mitral valve regurgitation. Aortic Valve Morphologically normal aortic valve without significant sclerosis or stenosis. There is no aortic regurgitation. Tricuspid Valve Morphologically normal tricuspid valve. Trace to mild tricuspid valve regurgitation. Tricuspid regurgitation velocities suggest a PAP of 52 mmHg. Pulmonic Valve Morphologically normal pulmonic valve without significant stenosis. There is no pulmonic regurgitation. Pericardium Normal pericardium without effusion. Aorta Normal ascending aorta dimension. Varinder King MD (Electronically Signed) 24 May 2017 Final Date: 18:35
[2017-05-24] MEDS: POTASSIUM CHLORIDE 20 MEQ TABLET PO SCH (20:28)
[2017-05-24] MEDS: MULTIVITAMIN (CENTRUM) TABLET PO SCH (20:28)
[2017-05-24] MEDS: CARVEDILOL 3.125 MG TABLET PO SCH (20:28)
[2017-05-24] MEDS ORDERED: cefTRIAXone 1,000 MG in SODIUM CHLORIDE 0.9% 100 ML IV SCH (21:00)
[2017-05-25] MEDS: LEVOTHYROXINE 100 MCG TABLET PO SCH (06:02)
[2017-05-25] MEDS: ENOXAPARIN 40 MG/0.4 ML SYRINGE SUBCUT SCH (08:29)
[2017-05-25] MEDS: ASPIRIN EC 81 MG TABLET PO SCH (08:29)
[2017-05-25] MEDS: CARVEDILOL 3.125 MG TABLET PO SCH ×2 (08:29→21:40)
--- NOTE | 2017-05-25 08:34 | EKG Report ---
Stationary ECG Study [facility] Test Date: 05/25/2017 7:43:54 AM Pat Name: DALY ZAMORA Department: Room: 528 Gender: F Software Development Analyst: TAL : 1950 Requested by: Regino Owens Order Number: [id number] Reading MD: REGINO OWENS Intervals [place] Rate: 71 P: 56 WI: 155 QRS: 52 QRSD: 83 T: 18 QT: 361 QTc: 384 Interpretive Statements SINUS RHYTHM Electronically Signed On 05-25-17 10:15:15 CDT by REGINO OWENS [email or web address]
[2017-05-25] MEDS: ACETAMINOPHEN 325 MG TABLET PO PRN ×2 (11:08→18:42)
--- NOTE | 2017-05-25 14:11 | Cardiology Progress Note ---
Assessment and Plan - Time spent with patient Time spent with patient: Less than 30 minutes (1) Cardiac enzymes elevated Status: Acute Assessment and plan: See plan of care listed below. Current Visit: Yes (2) Pyelonephritis Status: Acute Assessment and plan: See plan of care listed below. Current Visit: Yes (3) Acute renal failure Status: Acute Assessment and plan: See plan of care listed below. Current Visit: Yes (4) Sepsis Status: Acute Assessment and plan: See plan of care listed below. Current Visit: Yes (5) Generalized weakness Status: Acute Assessment and plan: See plan of care listed below. Current Visit: Yes (6) Hypokalemia Status: Acute Assessment and plan: See plan of care listed below. Current Visit: Yes (7) Hypertension Status: Chronic Assessment and plan: See plan of care listed below. Current Visit: Yes (8) Hypothyroidism Status: Chronic Assessment and plan: See plan of care listed below. Current Visit: Yes (9) Blood glucose elevated Status: Acute Assessment and plan: See plan of care listed below. Current Visit: Yes Cardiology - PN: Subj Interval history: Senior Enlisted Advisor: new to [facility] (would prefer to see Dr. Carrasco as he has seen her other family members) SUMMARY: Ms. Simon is a 67 y/o WF who presented to the emergency room on 05/23/17 with complaints of generalized weakness and malaise, fever, and nausea. On Sunday05/19/17, she had a sudden onset of diaphoresis, nausea, neck, and shoulder pain along with severe weakness. Since then, she has steadily worsened. She was determined to be septic upon arrival with acute renal failure and pyelonephritis. We are consulted due to bowser zone troponins which could be related to her renal failure, sepsis, hypertension, or 1 of her other medical illnesses. However, she could have some underlying cardiac disease. At this time, best approach would be to treat her medically for presumed coronary disease (not overt at this time), allow her to get over this acute illness, then evaluate with an outpatient stress test or heart catheterization. Her echocardiogram revealed EF 60% with no wall motion abnormality, moderate LVH, trace MR, trace to mild TR, and mild pulmonary hypertension. 2016: No acute changes overnight. Ms. simon reports she is feeling about the same, maybe slightly improved. She is still running a temperature of about 100. She has no cardiac complaints at this time. Blood pressure, heart rate remains stable. Continue aspirin and beta morgan. We will continue to follow along with you. Dr. King will follow with further plan and addendum. ASSESSMENT/PLAN: 1. ELEVATED TROPONIN: Trivially elevated in the setting of acute renal failure. It's possible she could have had a cardiac event Sunday, but at this time, we would postpone further cardiac evaluation until she has recovered from her acute illness. I have ordered an echocardiogram which we will review. We'll go ahead and start her on a baby aspirin daily as well as a low-dose beta morgan. 2. PYELONEPHRITIS: She has been started on IV antibiotics. Will defer further management to hospital medicine. 3. SEPSIS: Urine culture and blood culture preliminary report shows gram negative rods. She has been started on antibiotics. 4. ACUTE RENAL FAILURE: She has been started on IVF and antibiotics. We are avoiding nephrotoxic agents and following BMP. 5. GENERALIZED WEAKNESS: Likely due to sepsis and phyelonephritis. 6. HYPOKALEMIA: This is being replaced as needed. 7. HYPERTENSION: Has been fairly well controlled. Will continue to monitor and adjust accordingly. Her home blood pressure medications are on hold due to ARF. She has hydralazine PRN. She has been started on low-dose beta morgan and aspirin. 8. HYPOTHYROID: FT4 normal. 9. ELEVATED BLOOD GLUCOSE: Hemoglobin A1C 5.7. Exam (Progress Note) - Constitutional Vitals: Period Temp Pulse Resp BP Sys/Flores Pulse Ox Last 24 Hr 97.8 F-100.0 F 67-92 16-20 120-160/47-73 93-100 Exam: General appearance: Appears well. Pleasant and cooperative. Overweight, no acute distress. Head exam: Present: normal inspection, normocephalic, atraumatic. Absent: hematoma, laceration Eye exam: Present: EOMI. Absent: conjunctival injection, nystagmus, periorbital swelling, scleral icterus, laceration to eyelids, jaundice Pupils: Present: PERRL. Absent: constricted, dilated, fixed, irregular, unequal ENT exam: Present: normal exam, normal external ear exam, mucous membranes moist. Neck exam: Present: normal inspection, midline trachea. Absent: masses, lymphadenopathy, tenderness, thyromegaly, carotid bruit Respiratory exam: Present: clear to auscultation bilaterally. Absent: accessory muscle use, chest wall tenderness, rales, rhonchi, wheezing. Cardiovascular exam: Present: regular rate and rhythm. Systolic ejection murmur. Absent: gallop, JVD, rubs GI/Abdominal exam: Present: normal bowel sounds, soft. Absent: distended, firm , hernia, mass, tenderness. Extremities exam: Present: Normal Gait, No Clubbing, No Cyanosis, Upper Extr. Pulses 2+, Lower Extr. Pulses 2+, No edema. Capillary refill less than 3 seconds. Musculoskeletal: Present: No Fluid Collection, No Pain, Normal Range of Motion Back exam: Present: normal inspection. Absent: muscle spasm, vertebral tenderness Neurological exam: Present: awake, alert, oriented X3, Moves all extremities well without hemiparesis or paralysis. Grossly intact without resting or essential tremor Psychiatric exam: Present: normal affect, normal mood Skin exam: Present: normal color, warm, dry, intact. Absent: cyanosis, diaphoretic, rash, urticaria Result/EKG - Labs CBC & BMP: 05/24/17 06:47 05/24/17 06:47 Lab Results: I have reviewed the past 24 hour labs - EKG EKG results: interpreted by me, sinus rhythm
--- NOTE | 2017-05-25 16:27 | Hospitalist Progress Note ---
Hospitalist: Subjective Interval history: Patient states that she is feeling better than yesterday and slept last night. She was admitted with acute pyelonephritis with sepsis. Exam - Constitutional Vitals: Period Temp Pulse Resp BP Sys/Flores Pulse Ox Last 24 Hr 97.8 F-100.0 F 67-73 16-20 120-149/47-73 93-97 Exam: General: No Acute Distress HEENT: Normocephalic, atraumatic, Extra ocular movements intact Neck: Supple, No JVD Chest: Clear to auscultation B/L CV: S1 + S2 audible without murmur, gallop or rub Abd: soft, NT, Non-distended, BS + Ext: No edema Skin: No purpura, bruising or rash Rheumatologic: No Joint deformities Neurologic: Strength 5/5 all extremities, no gross sensory deficits Results - Labs CBC & BMP: 05/24/17 06:47 05/24/17 06:47 - Impressions Assessment and Plan Acute pyelonephritis Status: Acute Assessment and plan: Urine cultures growing gram-negative bacilli, continue IV Rocephin, follow final culture report Current Visit: Yes Sepsis, POA Status: Acute Assessment and plan: Blood cultures are growing gram-negative bacilli, continue IV Rocephin, follow final culture sensitivity report Current Visit: Yes Acute renal failure Status: Acute Assessment and plan: Creatinine is improving with IV hydration Current Visit: Yes Generalized weakness Status: Acute Assessment and plan: Due to sepsis. Consider physical therapy if she is agreeable Current Visit: Yes Mildly elevated cardiac enzymes Status: Acute Assessment and plan: I suspect this is this is due to supply demand mismatch due to sepsis. Ejection fraction is 60% on echo Current Visit: Yes Hypokalemia Status: Acute Assessment and plan: Potassium improving with replacement Current Visit: Yes Blood glucose elevated Status: Acute Assessment and plan: Patient denies history of diabetes. Check HA1C with am labs. Current Visit: Yes Ess Hypertension Status: Chronic Assessment and plan: Holding home BP meds for now due to ARF. Hydralazine 10 mg IV Q6 hours PRN for BP >150/90. Current Visit: Yes Hypothyroidism Status: Chronic Assessment and plan: Continue home dose of levothyroxine. Current Visit: Yes DVT prophylaxis Status: Acute Assessment and plan: Lovenox 40 mg SQ daily. Current Visit: Yes
[2017-05-25] MEDS: cefTRIAXone 2,000 MG in SODIUM CHLORIDE 0.9% 100 ML IV SCH (18:05)
[2017-05-25] MEDS: POTASSIUM CHLORIDE 20 MEQ TABLET PO SCH (21:40)
[2017-05-25] MEDS: MULTIVITAMIN (CENTRUM) TABLET PO SCH (21:40)
[2017-05-26 03:46] LABS: Basophils % 0.2 % (0.0-0.8); Eosinophils # 0.2 10*3/uL (0.0-0.87); Eosinophils % 2.8 % (0.00-10.9); Hematocrit 33.1 VOL% (35.7-47.0); Hemoglobin 11.3 GM/DL (12.0-16.0); Immature Granulocytes % 0.5 %; Immature Granulocytes Absolute 0.04 #; Lymphocytes # 0.9 10*3/uL (1.4-4.0); Lymphocytes % 10.9 % (21.3-54.2); Mean Corpuscular HGB Conc 34.1 GM/DL (32-36); Mean Corpuscular Hemoglobin 32 PG (27-34); Mean Corpuscular Volume 92.7 FL (87-102); Mean Platelet Volume 10.9 FL (9.6-12.0); Monocytes # 0.8 10*3/uL (0.11-0.8); Monocytes % 9.1 % (1.7-12.7); Neutrophils # 6.3 10*3/uL (1.4-7.4); Neutrophils % 76.5 % (38.7-73.9); Platelet Count 132 T/CUMM (130-400); Red Blood Count 3.57 MC/CUMM (3.8-5.5); Red Cell Distribution Width 13.4 % (9.3-17.3); White Blood Count 8.2 T/CUMM (4-12)
[2017-05-26 04:27] LABS: Calcium 7.6 MG/DL (8.5-10.1); Magnesium 2.4 MG/DL (1.8-2.4); Osmolality,Calculated 285.1 MOS/KG (273-304); Potassium 3.5 MMOL/L (3.5-5.1)
[2017-05-26] MEDS: LEVOTHYROXINE 100 MCG TABLET PO SCH (06:27)
[2017-05-26] MEDS: ASPIRIN EC 81 MG TABLET PO SCH (08:38)
[2017-05-26] MEDS: ENOXAPARIN 40 MG/0.4 ML SYRINGE SUBCUT SCH (08:38)
[2017-05-26] MEDS: CARVEDILOL 3.125 MG TABLET PO SCH ×2 (08:38→21:21)
--- NOTE | 2017-05-26 09:17 | EKG Report ---
Stationary ECG Study [facility] Test Date: 05/26/2017 9:17:35 AM Pat Name: DALY ZAMORA Department: Room: 528 Gender: F Equipment Operator: LUDIN : 1950 Requested by: Regino Owens Order Number: [id number] Reading MD: REGINO OWENS Intervals [place] Rate: 68 P: 56 [place]: 169 QRS: 52 QRSD: 87 T: 22 QT: 376 QTc: 393 Interpretive Statements SINUS RHYTHM Electronically Signed On 05-26-17 12:21:23 CDT by REGINO OWENS [email or web address]
[2017-05-26] MEDS ORDERED: ALUMINUM/MAGNES/SIMETH MAX STR 30 ML UDCUP PO PRN (11:31)
[2017-05-26] MEDS: PANTOPRAZOLE 40 MG TABLET PO SCH (12:11)
--- NOTE | 2017-05-26 15:18 | Cardiology Progress Note ---
Assessment and Plan (1) Elevated troponin Problem details: bowser zone, flat, may be related to renal failure or other cause Status: Acute Assessment and plan: No overt ischemia Continues to improve with improving renal function Feels better. Probably clearing of the sepsis is helping The E. coli is sensitive to the ceftriaxone which she is on Continue the low-dose carvedilol and aspirin I will have the patient follow-up with Dr. Vern Carrasco after she gets out of here to continue cardiac evaluation, and as needed Current Visit: Yes (2) Overweight Status: Acute Current Visit: Yes (3) E. coli sepsis Status: Acute Current Visit: Yes (4) Acute renal failure Status: Acute Current Visit: Yes (5) Hypokalemia Status: Acute Current Visit: Yes (6) Pyelonephritis Status: Acute Current Visit: Yes (7) Sepsis Status: Acute Current Visit: Yes (8) UTI (urinary tract infection) Status: Acute Current Visit: Yes (9) Hypertension Status: Chronic Current Visit: Yes (10) Hypothyroidism Status: Chronic Current Visit: Yes Cardiology - PN: Subj Interval history: No chest pain or shortness of breath. She states she feels better. Exam (Progress Note) - Constitutional Vitals: Period Temp Pulse Resp BP Sys/Flores Pulse Ox Last 24 Hr 97.8 F-100.1 F 61-73 16-20 119-156/55-77 92-97 Exam: HEENT: Pupils equal, reactive to light and accommodation Neck: NoJVD or bruit Lungs clear to auscultation Heart: Regular rhythm rate with normal S1 and S2. Apical S4, 2/6 systolic ejection murmur along the left lower sternal border Abdomen: No hepatosplenomegaly Spine/extremities: No clubbing, cyanosis, or edema Neuro: Nonfocal Psych: No depression or anxiety Result/EKG - Labs CBC & BMP: 05/26/17 02:40 05/26/17 02:39 Lab Results: I have reviewed the past 24 hour labs Labs: Laboratory Results - last 24 hr 05/26/17 05/26/17 02:39 02:40 WBC 8.2 D RBC 3.57 L Hgb 11.3 L Hct 33.1 L MCV 92.7 MCH 32 MCHC 34.1 RDW 13.4 Plt Count 132 MPV 10.9 Neut % (Auto) 76.5 H Lymph % (Auto) 10.9 L Winn % (Auto) 9.1 Eos % (Auto) 2.8 Baso % (Auto) 0.2 Neut # (Auto) 6.3 Lymph # (Auto) 0.9 L Winn # (Auto) 0.8 Eos # (Auto) 0.2 Baso # (Auto) 0.0 Immature Gran % 0.5 Nucleated RBC % 0.0 Immature Gran # 0.04 Nucleated RBCs # 0.00 Immature Plt Fraction 0.0 Sodium 142 Potassium 3.5 Chloride 108 H Carbon Dioxide 28 Anion Gap 9.5 BUN 17 Creatinine 1.00 GFR Calculation 79 BUN/Creatinine Ratio 17.00 Glucose 111 H Calculated Osmolality 285.1 Calcium 7.6 L Magnesium 2.4 Specialty Discharge - Follow Up or Referrals Follow up with: Grey Carrasco MD [Physician] - (The patient requests seeing Dr. Carrasco as her memory care director long-term. He had seen her mother or other relative and the patient likes him, requests him. As the patient is discharged, you can set up appointment for him to see her in the next 2 - 4 weeks. He may want to consider an ischemia evaluation after she has recovered from her recent illness. )
--- NOTE | 2017-05-26 15:31 | Hospitalist Progress Note ---
Hospitalist: Subjective Interval history: Patient states that she feels like that she is improving on current treatment. She was admitted with sepsis. Exam - Constitutional Vitals: Period Temp Pulse Resp BP Sys/Flores Pulse Ox Last 24 Hr 97.8 F-100.1 F 61-73 16-20 119-156/55-77 92-97 Exam: General: No Acute Distress HEENT: Normocephalic, atraumatic, Extra ocular movements intact Neck: Supple, No JVD Chest: Clear to auscultation B/L CV: S1 + S2 audible without murmur, gallop or rub Abd: soft, NT, Non-distended, BS + Ext: No edema Skin: No purpura, bruising or rash Rheumatologic: No Joint deformities Neurologic: Strength 5/5 all extremities, no gross sensory deficits Results - Labs CBC & BMP: 05/26/17 02:40 05/26/17 02:39 - Impressions Assessment and Plan Acute pyelonephritis Status: Acute Assessment and plan: Urine cultures growing gram-negative bacilli, continue IV Rocephin, follow final culture report Current Visit: Yes Sepsis, POA Status: Acute Assessment and plan: Blood cultures are growing gram-negative bacilli, continue IV Rocephin, follow final culture sensitivity report Current Visit: Yes Acute renal failure Status: Acute Assessment and plan: Creatinine is improving with IV hydration Current Visit: Yes Generalized weakness Status: Acute Assessment and plan: Due to sepsis. Consider physical therapy if she is agreeable Current Visit: Yes Mildly elevated cardiac enzymes Status: Acute Assessment and plan: I suspect this is this is due to supply demand mismatch due to sepsis. Ejection fraction is 60% on echo Current Visit: Yes Hypokalemia Status: Acute Assessment and plan: Potassium improving with replacement Current Visit: Yes Blood glucose elevated Status: Acute Assessment and plan: Hemoglobin A1c was 5.7 as such she does not have diabetes but does have impaired glucose tolerance Current Visit: Yes Ess Hypertension Status: Chronic Assessment and plan: Holding home BP meds for now due to ARF. Hydralazine 10 mg IV Q6 hours PRN for BP >150/90. Current Visit: Yes Hypothyroidism Status: Chronic Assessment and plan: Continue home dose of levothyroxine. Current Visit: Yes DVT prophylaxis Status: Acute Assessment and plan: Lovenox 40 mg SQ daily. Current Visit: Yes Specialty Discharge - Follow Up or Referrals Follow up with: Grey Carrasco MD [Physician] - (The patient requests seeing Dr. Carrasco as her mending carrier long-term. He had seen her mother or other relative and the patient likes him, requests him. As the patient is discharged, you can set up appointment for him to see her in the next 2 - 4 weeks. He may want to consider an ischemia evaluation after she has recovered from her recent illness. )
[2017-05-26] MEDS ORDERED: FUROSEMIDE 40 MG/4 ML VIAL ONE (16:41)
[2017-05-26] MEDS: cefTRIAXone 2,000 MG in SODIUM CHLORIDE 0.9% 100 ML IV SCH (17:25)
[2017-05-26] MEDS: MULTIVITAMIN (CENTRUM) TABLET PO SCH (21:21)
[2017-05-26] MEDS: POTASSIUM CHLORIDE 20 MEQ TABLET PO SCH (21:21)
[2017-05-27 05:43] LABS: Basophils % 0.4 % (0.0-0.8); Eosinophils # 0.3 10*3/uL (0.0-0.87); Hematocrit 31.4 VOL% (35.7-47.0); Hemoglobin 10.8 GM/DL (12.0-16.0); Immature Granulocytes % 0.5 %; Immature Granulocytes Absolute 0.04 #; Lymphocytes # 1.4 10*3/uL (1.4-4.0); Lymphocytes % 16.6 % (21.3-54.2); Mean Corpuscular HGB Conc 34.4 GM/DL (32-36); Mean Corpuscular Hemoglobin 32 PG (27-34); Mean Corpuscular Volume 91.5 FL (87-102); Mean Platelet Volume 10.6 FL (9.6-12.0); Monocytes # 0.9 10*3/uL (0.11-0.8); Monocytes % 10.2 % (1.7-12.7); Neutrophils # 5.8 10*3/uL (1.4-7.4); Neutrophils % 69.3 % (38.7-73.9); Platelet Count 146 T/CUMM (130-400); Red Blood Count 3.43 MC/CUMM (3.8-5.5); Red Cell Distribution Width 13.5 % (9.3-17.3); White Blood Count 8.4 T/CUMM (4-12)
[2017-05-27 06:17] LABS: Calcium 7.8 MG/DL (8.5-10.1); Magnesium 2.2 MG/DL (1.8-2.4); Osmolality,Calculated 283.1 MOS/KG (273-304); Potassium 3.4 MMOL/L (3.5-5.1)
[2017-05-27] MEDS: LEVOTHYROXINE 100 MCG TABLET PO SCH (06:37)
[2017-05-27] MEDS: ACETAMINOPHEN 325 MG TABLET PO PRN (06:42)
[2017-05-27] MEDS: ENOXAPARIN 40 MG/0.4 ML SYRINGE SUBCUT SCH (08:14)
[2017-05-27] MEDS: ASPIRIN EC 81 MG TABLET PO SCH (08:14)
[2017-05-27] MEDS: PANTOPRAZOLE 40 MG TABLET PO SCH (08:14)
[2017-05-27] MEDS: CARVEDILOL 3.125 MG TABLET PO SCH ×2 (08:14→20:21)
--- NOTE | 2017-05-27 09:22 | EKG Report ---
Stationary ECG Study [facility] Test Date: 05/27/2017 8:54:17 AM Pat Name: DALY ZAMORA Department: Room: 528 Gender: F Oyster Grader: LUDIN : 1950 Requested by: Regino Owens Order Number: [id number] Reading MD: REGINO OWENS Intervals [place] Rate: 60 P: 43 WV: 158 QRS: 12 QRSD: 88 T: 36 QT: 403 QTc: 405 Interpretive Statements SINUS RHYTHM LOW QRS VOLTAGE IN PRECORDIAL LEADS INTERPRETATION BASED ON A DEFAULT AGE OF 40 YEARS Electronically Signed On 05-27-17 11:48:31 CDT by REGINO OWENS [id number]
--- NOTE | 2017-05-27 13:23 | Hospitalist Progress Note ---
Hospitalist: Subjective Interval history: This patient was admitted with pyelonephritis and sepsis. She continues to improve with treatment. Exam - Constitutional Vitals: Period Temp Pulse Resp BP Sys/Flores Pulse Ox Last 24 Hr 97.7 F-98.4 F 48-80 16-20 118-168/60-93 93-98 Exam: General: No Acute Distress HEENT: Normocephalic, atraumatic, Extra ocular movements intact Neck: Supple, No JVD Chest: Clear to auscultation B/L CV: S1 + S2 audible without murmur, gallop or rub Abd: soft, NT, Non-distended, BS + Ext: No edema Skin: No purpura, bruising or rash Rheumatologic: No Joint deformities Neurologic: Strength 5/5 all extremities, no gross sensory deficits Results - Labs CBC & BMP: 05/27/17 05:15 05/27/17 05:15 - Impressions Assessment and Plan E. coli acute pyelonephritis Status: Acute Assessment and plan: Continue IV Rocephin Current Visit: Yes E. coli sepsis, POA Status: Acute Assessment and plan: Sensitive to Rocephin continue Current Visit: Yes Acute renal failure Status: Acute Assessment and plan: Creatinine is improving with IV hydration Current Visit: Yes Generalized weakness Status: Acute Assessment and plan: Due to sepsis. She is improved and ambulating in hallways Current Visit: Yes Mildly elevated cardiac enzymes Status: Acute Assessment and plan: I suspect this is this is due to supply demand mismatch due to sepsis. Ejection fraction is 60% on echo Current Visit: Yes Hypokalemia Status: Acute Assessment and plan: Potassium improving with replacement Current Visit: Yes Blood glucose elevated Status: Acute Assessment and plan: Hemoglobin A1c was 5.7 as such she does not have diabetes but does have impaired glucose tolerance Current Visit: Yes Ess Hypertension Status: Chronic Assessment and plan: Holding home BP meds for now due to ARF. Hydralazine 10 mg IV Q6 hours PRN for BP >150/90. Current Visit: Yes Hypothyroidism Status: Chronic Assessment and plan: Continue home dose of levothyroxine. Current Visit: Yes DVT prophylaxis Status: Acute Assessment and plan: Lovenox 40 mg SQ daily. Current Visit: Yes Specialty Discharge - Follow Up or Referrals Follow up with: Grey Carrasco MD [Physician] - (The patient requests seeing Dr. Carrasco as her activities therapist long-term. He had seen her mother or other relative and the patient likes him, requests him. As the patient is discharged, you can set up appointment for him to see her in the next 2 - 4 weeks. He may want to consider an ischemia evaluation after she has recovered from her recent illness. )
[2017-05-27] MEDS ORDERED: POTASSIUM CHLORIDE 20 MEQ PACK PO ONE (16:21)
--- NOTE | 2017-05-27 16:24 | Cardiology Progress Note ---
Assessment and Plan (1) Elevated troponin Problem details: bowser zone, flat, may be related to renal failure or other cause Status: Acute Assessment and plan: No overt ischemia Continues to improve with improving renal function Feels better. Probably clearing of the sepsis is helping The E. coli is sensitive to the ceftriaxone which she is on Continue the low-dose carvedilol and aspirin I will have the patient follow-up with Dr. Vern Carrasco after she gets out of here to continue cardiac evaluation, and as needed 05/27/17: Assessment/plan/recommendation: I went over with the patient and her blood culture showed E. coli and the antibiotics are adequate for treatment of it Her white count is now normal, suggesting controlled with infection. I do not know why she does not feel as well No obvious cardiac or ischemic cause Her potassium is low, will give her an additional amount of potassium. May be due from a post ATN diuresis Continue current therapy Home when you say so with follow-up with Dr. Danilo Carrasco will be the one to see her beginning tomorrow for our team . Current Visit: Yes (2) Overweight Status: Acute Current Visit: Yes (3) E. coli sepsis Status: Acute Current Visit: Yes (4) Acute renal failure Status: Acute Current Visit: Yes (5) Hypokalemia Status: Acute Current Visit: Yes (6) Pyelonephritis Status: Acute Current Visit: Yes (7) Sepsis Status: Acute Current Visit: Yes (8) UTI (urinary tract infection) Status: Acute Current Visit: Yes (9) Hypertension Status: Chronic Current Visit: Yes (10) Hypothyroidism Status: Chronic Current Visit: Yes Cardiology - PN: Subj Interval history: No chest pain or shortness of breath. Had a headache. Does not feel quite as well today. Exam (Progress Note) - Constitutional Vitals: Period Temp Pulse Resp BP Sys/Flores Pulse Ox Last 24 Hr 97.7 F-98.4 F 48-80 16-20 118-149/60-70 93-98 Exam: HEENT: Pupils equal, reactive to light and accommodation Neck: NoJVD or bruit Lungs clear to auscultation Heart: Regular rhythm rate with normal S1 and S2. Apical S4, 2/6 systolic ejection murmur along the left lower sternal border Abdomen: No hepatosplenomegaly Spine/extremities: No clubbing, cyanosis, or edema Neuro: Nonfocal Psych: No depression or anxiety Result/EKG - Labs CBC & BMP: 05/27/17 05:15 05/27/17 05:15 Lab Results: I have reviewed the past 24 hour labs Labs: Laboratory Results - last 24 hr 05/27/17 05/27/17 05:15 05:15 WBC 8.4 RBC 3.43 L Hgb 10.8 L Hct 31.4 L MCV 91.5 MCH 32 MCHC 34.4 RDW 13.5 Plt Count 146 MPV 10.6 Neut % (Auto) 69.3 Lymph % (Auto) 16.6 L [place] % (Auto) 10.2 Eos % (Auto) 3.0 Baso % (Auto) 0.4 Neut # (Auto) 5.8 Lymph # (Auto) 1.4 [place] # (Auto) 0.9 H Eos # (Auto) 0.3 Baso # (Auto) 0.0 Immature Gran % 0.5 Nucleated RBC % 0.0 Immature Gran # 0.04 Nucleated RBCs # 0.00 Immature Plt Fraction 0.0 Sodium 142 Potassium 3.4 L Chloride 106 Carbon Dioxide 29 Anion Gap 10.4 BUN 12 Creatinine 1.00 GFR Calculation 79 BUN/Creatinine Ratio 12.00 Glucose 113 H Calculated Osmolality 283.1 Calcium 7.8 L Magnesium 2.2 - EKG EKG results: interpreted by me Specialty Discharge - Follow Up or Referrals Follow up with: Grey Carrasco MD [Physician] - (The patient requests seeing Dr. Carrasco as her corn grinder long-term. He had seen her mother or other relative and the patient likes him, requests him. As the patient is discharged, you can set up appointment for him to see her in the next 2 - 4 weeks. He may want to consider an ischemia evaluation after she has recovered from her recent illness. )
[2017-05-27] MEDS: cefTRIAXone 2,000 MG in SODIUM CHLORIDE 0.9% 100 ML IV SCH (18:54)
[2017-05-27] MEDS: POTASSIUM CHLORIDE 20 MEQ TABLET PO SCH (20:21)
[2017-05-27] MEDS: MULTIVITAMIN (CENTRUM) TABLET PO SCH (20:21)
[2017-05-28 05:43] LABS: Basophils % 0.4 % (0.0-0.8); Eosinophils # 0.3 10*3/uL (0.0-0.87); Eosinophils % 3.7 % (0.00-10.9); Hematocrit 32.1 VOL% (35.7-47.0); Hemoglobin 10.8 GM/DL (12.0-16.0); Immature Granulocytes % 1.4 %; Immature Granulocytes Absolute 0.13 #; Lymphocytes # 1.4 10*3/uL (1.4-4.0); Mean Corpuscular HGB Conc 33.6 GM/DL (32-36); Mean Corpuscular Hemoglobin 31 PG (27-34); Mean Corpuscular Volume 92.2 FL (87-102); Mean Platelet Volume 10.6 FL (9.6-12.0); Monocytes # 0.9 10*3/uL (0.11-0.8); Monocytes % 9.6 % (1.7-12.7); Neutrophils # 6.2 10*3/uL (1.4-7.4); Neutrophils % 68.9 % (38.7-73.9); Platelet Count 183 T/CUMM (130-400); Red Blood Count 3.48 MC/CUMM (3.8-5.5); Red Cell Distribution Width 13.3 % (9.3-17.3)
[2017-05-28 06:42] LABS: Magnesium 2.2 MG/DL (1.8-2.4); Osmolality,Calculated 282.1 MOS/KG (273-304); Potassium 3.7 MMOL/L (3.5-5.1)
[2017-05-28] MEDS: LEVOTHYROXINE 100 MCG TABLET PO SCH (06:47)
--- NOTE | 2017-05-28 07:37 | EKG Report ---
Stationary ECG Study [facility] Test Date: 05/28/2017 7:34 AM Pat Name: Jabari Simon Department: Room: 528 Gender: F Pants Busheler: Melvin : 1950 Requested by: Varinder King Order Number: [id number] Reading MD: GRIS MILES Intervals [place] Rate: 59 P: 52 [place]: 162 QRS: 45 QRSD: 91 T: 25 QT: 404 QTc: 403 Interpretive Statements SINUS BRADYCARDIA Electronically Signed On 05-28-17 07:36:55 CDT by GRIS MILES [id number]
[2017-05-28] MEDS: CARVEDILOL 3.125 MG TABLET PO SCH (08:35)
[2017-05-28] MEDS: ENOXAPARIN 40 MG/0.4 ML SYRINGE SUBCUT SCH (08:35)
[2017-05-28] MEDS: PANTOPRAZOLE 40 MG TABLET PO SCH (08:35)
[2017-05-28] MEDS: ASPIRIN EC 81 MG TABLET PO SCH (08:35)
[2017-05-28] MEDS ORDERED: LEVOFLOXACIN 500 MG TABLET PO SCH (09:00)
--- NOTE | 2017-05-28 10:43 | Cardiology Progress Note ---
<Vicky Keith E - Last Filed: 05/28/17 10:44> Assessment and Plan - Time spent with patient Time spent with patient: Less than 30 minutes (1) Cardiac enzymes elevated Status: Acute Assessment and plan: See plan of care listed below. Current Visit: Yes (2) Pyelonephritis Status: Acute Assessment and plan: See plan of care listed below. Current Visit: Yes (3) Acute renal failure Status: Acute Assessment and plan: See plan of care listed below. Current Visit: Yes (4) Sepsis Status: Acute Assessment and plan: See plan of care listed below. Current Visit: Yes (5) Generalized weakness Status: Acute Assessment and plan: See plan of care listed below. Current Visit: Yes (6) Hypokalemia Status: Acute Assessment and plan: See plan of care listed below. Current Visit: Yes (7) Hypertension Status: Chronic Assessment and plan: See plan of care listed below. Current Visit: Yes (8) Hypothyroidism Status: Chronic Assessment and plan: See plan of care listed below. Current Visit: Yes (9) Blood glucose elevated Status: Acute Assessment and plan: See plan of care listed below. Current Visit: Yes Cardiology - PN: Subj Interval history: [employer]: new to [facility] (would prefer to see Dr. Carrasco as he has seen her other family members) SUMMARY: Ms. Simon is a 67 y/o WF who presented to the emergency room on 05/23/17 with complaints of generalized weakness and malaise, fever, and nausea. On Sunday05/19/17, she had a sudden onset of diaphoresis, nausea, neck, and shoulder pain along with severe weakness. Since then, she has steadily worsened. She was determined to be septic upon arrival with acute renal failure and pyelonephritis. We are consulted due to bowser zone troponins which could be related to her renal failure, sepsis, hypertension, or 1 of her other medical illnesses. However, she could have some underlying cardiac disease. At this time, best approach would be to treat her medically for presumed coronary disease (not overt at this time), allow her to get over this acute illness, then evaluate with an outpatient stress test or heart catheterization. Her echocardiogram revealed EF 60% with no wall motion abnormality, moderate LVH, trace MR, trace to mild TR, and mild pulmonary hypertension. 2016: No acute changes overnight. Ms. Simon reports she is feeling much better and states that she is supposed to be going home today. She remains stable from a cardiac standpoint and we have nothing further to add at this time. Okay from cardiology standpoint to discharge home and follow up with Dr. Carrasco (as per patient's request) in 2-4 weeks. She will need to continue her aspirin and coreg at discharge. Further plan and addendum to follow by Dr. Carrasco. ASSESSMENT/PLAN: 1. ELEVATED TROPONIN: Trivially elevated in the setting of acute renal failure. It's possible she could have had a cardiac event Sunday, but at this time, we would postpone further cardiac evaluation until she has recovered from her acute illness. She was started on low dose Aspirin and low dose Coreg. 2. PYELONEPHRITIS: She has been on IV antibiotics, now transitioning to PO at discharge. 3. SEPSIS: Urine culture and blood culture preliminary report shows gram negative rods with E. coli. WBC has returned to normal. 4. ACUTE RENAL FAILURE: She was started on IVF and antibiotics. We have been avoiding nephrotoxic agents and following BMP, creatinine now back to normal. 5. GENERALIZED WEAKNESS: Likely due to sepsis and phyelonephritis. 6. HYPOKALEMIA: This is being replaced as needed. 7. HYPERTENSION: Has been fairly well controlled. Will continue to monitor and adjust accordingly. She has been started on low-dose beta morgan and aspirin. 8. HYPOTHYROID: FT4 normal. 9. ELEVATED BLOOD GLUCOSE: Hemoglobin A1C 5.7. Exam (Progress Note) - Constitutional Vitals: Period Temp Pulse Resp BP Sys/Flores Pulse Ox Last 24 Hr 97.7 F-98.6 F 48-78 16-20 118-163/60-79 92-96 Exam: General appearance: Appears well. Pleasant and cooperative. Overweight, no acute distress. Head exam: Present: normal inspection, normocephalic, atraumatic. Absent: hematoma, laceration Eye exam: Present: EOMI. Absent: conjunctival injection, nystagmus, periorbital swelling, scleral icterus, laceration to eyelids, jaundice Pupils: Present: PERRL. Absent: constricted, dilated, fixed, irregular, unequal ENT exam: Present: normal exam, normal external ear exam, mucous membranes moist. Neck exam: Present: normal inspection, midline trachea. Absent: masses, lymphadenopathy, tenderness, thyromegaly, carotid bruit Respiratory exam: Present: clear to auscultation bilaterally. Absent: accessory muscle use, chest wall tenderness, rales, rhonchi, wheezing. Cardiovascular exam: Present: regular rate and rhythm. Systolic ejection murmur. Absent: gallop, JVD, rubs GI/Abdominal exam: Present: normal bowel sounds, soft. Absent: distended, firm , hernia, mass, tenderness. Extremities exam: Present: Normal Gait, No Clubbing, No Cyanosis, Upper Extr. Pulses 2+, Lower Extr. Pulses 2+, No edema. Capillary refill less than 3 seconds. Musculoskeletal: Present: No Fluid Collection, No Pain, Normal Range of Motion Back exam: Present: normal inspection. Absent: muscle spasm, vertebral tenderness Neurological exam: Present: awake, alert, oriented X3, Moves all extremities well without hemiparesis or paralysis. Grossly intact without resting or essential tremor Psychiatric exam: Present: normal affect, normal mood Skin exam: Present: normal color, warm, dry, intact. Absent: cyanosis, diaphoretic, rash, urticaria Result/EKG - Labs CBC & BMP: 05/28/17 05:02 05/28/17 05:02 Lab Results: I have reviewed the past 24 hour labs Labs: Laboratory Results - last 24 hr 05/28/17 05/28/17 05:02 05:02 WBC 9.0 RBC 3.48 L Hgb 10.8 L Hct 32.1 L MCV 92.2 MCH 31 MCHC 33.6 RDW 13.3 Plt Count 183 D MPV 10.6 Neut % (Auto) 68.9 Lymph % (Auto) 16.0 L [place] % (Auto) 9.6 Eos % (Auto) 3.7 Baso % (Auto) 0.4 Neut # (Auto) 6.2 Lymph # (Auto) 1.4 [place] # (Auto) 0.9 H Eos # (Auto) 0.3 Baso # (Auto) 0.0 Immature Gran % 1.4 Nucleated RBC % 0.0 Immature Gran # 0.13 Nucleated RBCs # 0.00 Immature Plt Fraction 0.0 Sodium 142 Potassium 3.7 Chloride 106 Carbon Dioxide 31 Anion Gap 8.7 BUN 13 Creatinine 0.90 GFR Calculation 90 BUN/Creatinine Ratio 14.00 Glucose 97 Calculated Osmolality 282.1 Calcium 8.0 L Magnesium 2.2 - EKG EKG results: interpreted by me, sinus rhythm Specialty Discharge - Follow Up or Referrals Follow up with: Grey Carrasco MD [Physician] - 06/20/17 9:40 am () <Gery Carrasco - Last Filed: 05/28/17 14:19> Cardiology - PN: Subj Interval history: I have discussed in detail the particulars of this case and I have examined the patient and reviewed the patient's chart both current and old. I was directly involved in the patient's evaluation and management and I completely agree with Nataliia Mckeon RN regarding this patient's evaluation and treatment plan. Exam (Progress Note) - Constitutional Vitals: Period Temp Pulse Resp BP Sys/Flores Pulse Ox Last 24 Hr 97.7 F-98.6 F 59-78 16-20 154-163/65-79 92-96 Result/EKG - Labs CBC & BMP: 05/28/17 05:02 05/28/17 05:02 Labs: Laboratory Results - last 24 hr 05/28/17 05/28/17 05:02 05:02 WBC 9.0 RBC 3.48 L Hgb 10.8 L Hct 32.1 L MCV 92.2 MCH 31 MCHC 33.6 RDW 13.3 Plt Count 183 D MPV 10.6 Neut % (Auto) 68.9 Lymph % (Auto) 16.0 L [place] % (Auto) 9.6 Eos % (Auto) 3.7 Baso % (Auto) 0.4 Neut # (Auto) 6.2 Lymph # (Auto) 1.4 [place] # (Auto) 0.9 H Eos # (Auto) 0.3 Baso # (Auto) 0.0 Immature Gran % 1.4 Nucleated RBC % 0.0 Immature Gran # 0.13 Nucleated RBCs # 0.00 Immature Plt Fraction 0.0 Sodium 142 Potassium 3.7 Chloride 106 Carbon Dioxide 31 Anion Gap 8.7 BUN 13 Creatinine 0.90 GFR Calculation 90 BUN/Creatinine Ratio 14.00 Glucose 97 Calculated Osmolality 282.1 Calcium 8.0 L Magnesium 2.2
[2017-05-28 12:02] VITALS: BP 158/75
--- NOTE | 2017-05-28 13:04 | Discharge Summary ---
Hospital Course - Hospital Course Hospital Course: 67 year old female with a past medical history of HTN, hypothyroidism, and gout who presented to the ED with complaints of generalized weakness and malaise, fever of 102, and nausea. Ms. Simon reports that on 05/19/17, she was at an estate sale when she had sudden onset of diaphoresis, clamminess, weakness, bilateral shoulder pain, left-sided neck pain and nausea. She had family take her home where she waited through the holiday with continuing symptoms. She presented to her PCP on Sunday and was told she probably had a mild heart attack. A cardiology appointment was established at that time. However, her symptoms persisted and she developed a fever of 102. Additionally, she reported right-sided abdominal pain and new onset of urinary urgency with incontinence since the Sunday event. In the ED, she was found to have elevated WBCs at 22.3 , creatinine of 1.5, a large number of leukocytes in her urine, and an elevated troponin of 0.058. CXR was negative for any acute cardiopulmonary process. She she was admitted to the hospital with a diagnosis of acute pyelonephritis with sepsis. Subsequent urine and blood culture grew E. coli which was sensitive to Rocephin and was continued. Her fever and leukocytosis have resolved, other symptoms have also resolved. She was seen by cardiology who continue to follow up as an outpatient. He had mildly elevated troponins but no evidence of an acute IN. Patient otherwise feeling much better and is ready to discharge home on oral antibiotics. Total discharge time 34 minutes. - Time spent with patient Time with patient DS: Greater than 30 minutes Diagnosis - Discharge Diagnosis (1) Pyelonephritis Status: Resolved (2) E. coli sepsis Status: Resolved Specialty Discharge - Follow Up or Referrals Follow up with: Grey Carrasco MD [Physician] - 06/20/17 9:40 am () Discharge Plan - Discharge Data Condition at Discharge: Stable Discharge Diet: advance to your usual diet Activity: resume usual activities as tolerated Hygiene: no restrictions Weight Bearing at Discharge: full weight bearing Driving: no restrictions Contact your physician if you experience:: fever over 101 - Discharge Medications New Aspirin EC Tab 81 mg PO DAILY #30 tablet Levofloxacin Tab [Levaquin Tab] 500 mg PO DAILY #7 tablet Pantoprazole Tab [Protonix Tab] 40 mg PO DAILY #30 tablet Carvedilol [Coreg] 3.125 mg PO BID #60 tablet Continue Levothyroxine Tab [Synthroid Tab] 100 mcg PO DAILY@0700 Multivit-Min/FA/Lycopen/Lutein [Centrum Silver Tablet] 1 each PO BEDTIME Triamterene/Hydrochlorothiazid [Triamterene-Hctz 37.5-25 mg Tb] 1 each PO QAM Potassium Chloride 20 meq PO BEDTIME - Follow Up or Referral Follow Up: Grey Carrasco MD [Physician] - 06/20/17 9:40 am () - Forms/Instructions Exam - Constitutional Vitals: Period Temp Pulse Resp BP Sys/Flores Pulse Ox Last 24 Hr 97.7 F-98.6 F 59-78 16-20 154-163/65-79 92-96 Exam: General: No Acute Distress HEENT: Normocephalic, atraumatic, Extra ocular movements intact Neck: Supple, No JVD Chest: Clear to auscultation B/L CV: S1 + S2 audible without murmur, gallop or rub Abd: soft, NT, Non-distended, BS + Ext: No edema Skin: No purpura, bruising or rash Rheumatologic: No Joint deformities Neurologic: Strength 5/5 all extremities, no gross sensory deficits Discharge Results Procedures and tests throughout hospitalization: Pending Orders 05/26/17 14:29 Blood Culture Routine Labs on day of discharge: Labs from last 24 hours 05/28/17 05/28/17 05:02 05:02 WBC 9.0 RBC 3.48 L Hgb 10.8 L Hct 32.1 L MCV 92.2 MCH 31 MCHC 33.6 RDW 13.3 Plt Count 183 D MPV 10.6 Neut % (Auto) 68.9 Lymph % (Auto) 16.0 L [place] % (Auto) 9.6 Eos % (Auto) 3.7 Baso % (Auto) 0.4 Neut # (Auto) 6.2 Lymph # (Auto) 1.4 [place] # (Auto) 0.9 H Eos # (Auto) 0.3 Baso # (Auto) 0.0 Immature Gran % 1.4 Nucleated RBC % 0.0 Immature Gran # 0.13 Nucleated RBCs # 0.00 Immature Plt Fraction 0.0 Sodium 142 Potassium 3.7 Chloride 106 Carbon Dioxide 31 Anion Gap 8.7 BUN 13 Creatinine 0.90 GFR Calculation 90 BUN/Creatinine Ratio 14.00 Glucose 97 Calculated Osmolality 282.1 Calcium 8.0 L Magnesium 2.2 Preliminary micro results at discharge 05/26/17 14:29 Blood Culture - Preliminary Blood No growth at 1 day 05/26/17 14:29 Blood Culture - Preliminary Blood No growth at 1 day DS: Provider Date of admission: 05/23/17 23:38 Primary care physician: . Karly PCP Attending physician on admission: Ata Blue MD Consults: 05/24/17 00:02 Consult to Physician [CONS] Routine Comment: chest pain eval trop Consulting Provider: Mayte Payne Person Notified: Chandler Date Notified: 05/24/17 Time Notified: 14:45 Discharging clinician: Susy Narvaez MD
== END 2017-05-28 15:45 | disposition home or self-care (01) | DRG 872 ==
LOC: N.ED 18:27 → N.EDINP 23:38 → SUATTDRO 23:38 → N.5E 05-24 01:02
PROVIDERS: ADMIT Family Medicine; ATTEND Hospitalist